=== PATIENT | male | born 1990 | race Caucasian/White ===

== ENCOUNTER 2020-06-14 12:09 | Emergency (ER) | payer OTHER, SELFPAY ==
[2020-06-14 12:13] VITALS: BP 188/85; PULSE 82; RESP 16; TEMP 36.5; O2SAT 98; BMI 31.7
--- NOTE | 2020-06-14 12:59 | ED.GENADULT ---
HPI - General Adult General Chief complaint: General Medical <RACHAEL Cuba Last Filed: 06/14/20 17:38> Stated complaint: Rash <RACHAEL Cuba Last Filed: 06/14/20 17:38> Time Seen by Provider: 06/14/20 13:07 <RACHAEL Cuba Last Filed: 06/14/20 17:38> Source: patient <RACHAEL Cuba Last Filed: 06/14/20 17:38> Mode of arrival: ambulatory <RACHAEL Cuba Last Filed: 06/14/20 17:38> Limitations: no limitations <RACHAEL Cuba Last Filed: 06/14/20 17:38> History of Present Illness HPI narrative: Patient presents to the ED for multiple complaints. Patient 1st complaint is itchy rash over the past 2 weeks. Secondary complaint is polydipsia polyuria for 1 month. Denies any abdominal pain, nausea, vomiting, dysuria, hematuria, flank pain, fever, or chills. Was at urgent care this morning and checked his glucose and it was 300. patient admits to family history of diabetes. Patient states his sister got diabetes in his 20s. Patient's 3rd complaint is slight inflammation irritation and swelling at foreskin at times make it slightly difficult to retract. <RACHAEL Cuba Last Filed: 06/14/20 17:38> Related Data Home medications: Previous Rx's Medication Instructions Recorded clotrimazole 1 applic TOPICAL BID 14 Days #28 g 06/14/20 diphenhydramine HCl [Benadryl] 25 mg PO TID PRN #30 cap 06/14/20 famotidine [Pepcid] 20 mg PO BID #20 tab 06/14/20 metformin 500 mg PO BID #30 tab 06/14/20 <RACHAEL Cuba Last Filed: 06/14/20 17:38> Allergies/adverse reactions: Allergies Allergy/AdvReac Type Severity Reaction Status Date / Time No Known Allergies Allergy Verified 06/14/20 12:15 <RACHAEL Cuba Last Filed: 06/14/20 17:38> Review of Systems Review of Systems: Yes all other systems are reviewed and are negative <RACHAEL Cuba Last Filed: 06/14/20 17:38> Constitutional: Constitutional: Reports as per HPI and Reports no additional constitutional complaints <RACHAEL Cuba Last Filed: 06/14/20 17:38> Eyes: Eyes: Reports as per HPI and Reports no additional eye complaints <RACHAEL Cuba Last Filed: 06/14/20 17:38> ENT: Reports system reviewed and no additional complaints, except as documented and Reports as per HPI <RACHAEL Cuba Last Filed: 06/14/20 17:38> Cardiovascular: Cardiovascular: Reports as per HPI, Reports no additional cardiovascular complaints, Denies chest pain, Denies chest pain at rest, Denies chest pain with activity, Denies Epigastric Pain, Denies dyspnea, Denies dyspnea on exertion, Denies orthopnea and Denies paroxysmal nocturnal dyspnea <RACHAEL Cuba Last Filed: 06/14/20 17:38> Respiratory: Respiratory: Reports as per HPI, Reports no additional respiratory complaints, Denies dyspnea and Denies dyspnea on exertion <RACHAEL Cuba Last Filed: 06/14/20 17:38> Gastrointestinal: Gastrointestinal: Reports as per HPI and Reports no additional gastrointestinal complaints <RACHAEL Cuba Last Filed: 06/14/20 17:38> Genitourinary: Comments: Balanitis <RACHAEL Cuba Last Filed: 06/14/20 17:38> Musculoskeletal: Musculoskeletal: Reports no additional musculoskeletal complaints and Reports as per HPI <RACHAEL Cuba Last Filed: 06/14/20 17:38> Comments: generalized seizure [place] rash on abdomen and chest. <RACHAEL Cuba Last Filed: 06/14/20 17:38> Neurologic: Reports system reviewed and no additional complaints, except as documented and Reports as per HPI <RACAHEL Cuba Last Filed: 06/14/20 17:38> Psychiatric: Psychiatric: Reports no additional psychiatric complaints and Reports as per HPI <RACHAEL Cuba Last Filed: 06/14/20 17:38> Endocrine: Comments: polydipsia and polyuria <RACHAEL Cuba Last Filed: 06/14/20 17:38> PMFSH Past Medical History Medical History: Medical History (Updated 06/15/20 @ 00:00 by Background Daluigi) No known health problems <RACHAEL Cuba - Last Filed: 06/14/20 17:38> Social History Social History: Social History Advance Directives: No Advance Directives Information Provided: No <RACHAEL Cuba - Last Filed: 06/14/20 17:38> Physical Exam Vital Signs: Vital Signs: Vital Signs Temp Pulse Resp BP Pulse Ox 06/14/20 16:00 97.9 F 63 16 139/87 98 06/14/20 13:01 76 16 155/90 H 97 06/14/20 12:13 97.7 F 82 16 188/85 H 98 Body Mass Index 31.7 <RACHAEL Cuba - Last Filed: 06/14/20 17:38> Vital Signs: Vital Signs Temp Pulse Resp BP Pulse Ox 06/14/20 16:00 97.9 F 63 16 139/87 98 06/14/20 13:01 76 16 155/90 H 97 06/14/20 12:13 97.7 F 82 16 188/85 H 98 Body Mass Index 31.7 <Negro Quintanilla MD - Last Filed: 06/25/20 01:40> Const: General: cooperative, healthy appearing, comfortable, no acute distress, well developed and awake <RACHAEL Cuba - Last Filed: 06/14/20 17:38> HENMT: Other: Negative for any swelling of lips or tongue. Uvula is midline. Patient is speaking in full sentences and not using accessory muscles. <RACHAEL Cuba - Last Filed: 06/14/20 17:38> Head: Yes normal to inspection and Yes No palpable skull fracture present <RACHAEL Cuba - Last Filed: 06/14/20 17:38> Eyes: General: appearance normal, both eyes and all related structures <RACHAEL Cuba - Last Filed: 06/14/20 17:38> Visual Dangelo: normal visual dangelo by confrontation <RACHAEL Cuba - Last Filed: 06/14/20 17:38> Neck: Neck: Yes normal visual inspection, Yes full ROM, Yes no lymphadenopathy and Yes no meningeal signs <RACHAEL Cuba - Last Filed: 06/14/20 17:38> Chest: Other: Patient positive uticaria rash on chest, abdomen and upper extremities. Patient describes rash is itchy. <RACHAEL Cuba Last Filed: 06/14/20 17:38> Chest palpation & inspection: normal inspection of the chest, normal palpation of entire chest wall and no localized rib tenderness <RACHAEL Cuba Last Filed: 06/14/20 17:38> Resp: Effort & Inspection: normal respiratory effort, able to speak in complete sentences, no audible wheezes, no cough, no grunting, not labored, no nasal flaring, no paradoxical thoraco-abdom movements, no retractions and no segmental paradox chest wall movement <RACHAEL Cuba Last Filed: 06/14/20 17:38> Auscultation: clear to auscultation bilaterally, no crackles, no rales, no rhonchi and no wheezes <RACHAEL Cuba Last Filed: 06/14/20 17:38> Percussion: percussion normal <RACHAEL Cuba Last Filed: 06/14/20 17:38> Cardio: Jugular venous distension: no JVD <RACHAEL Cuba Last Filed: 06/14/20 17:38> Heart sounds: S1 normal heart sound present and S2 normal heart sound present <RACHAEL Cuba Last Filed: 06/14/20 17:38> GI: Other: Positive uticaria rash abdomen <RACHAEL Cuba Last Filed: 06/14/20 17:38> Inspection: Yes normal to inspection and No abdominal wall ecchymosis <RACHAEL Cuba Last Filed: 06/14/20 17:38> Palpation (GI): Soft to palpation, not firm, nontender, no guarding and not rigid <RACHAEL Cuba Last Filed: 06/14/20 17:38> : Other: negative for any lesions on penis. Foreskin able to be pulled back and pulled forward. Irritation, erythema, inflammation around foreskin. Testicles are nontender, non swollen, and is normal. <RACHAEL Cuba Last Filed: 06/14/20 17:38> General: No CVA tenderness and Yes no CVA tenderness <RACHAEL Cuba Last Filed: 06/14/20 17:38> Back/Spine/Pelvis: Back: no CVA tenderness, No CVA tenderness and No back tenderness <RACHAEL Cuba Last Filed: 06/14/20 17:38> Skin: Other: positive for Uticarial Rash <RACHAEL Cuba Last Filed: 06/14/20 17:38> Neuro: General: gait normal, no meningeal signs and CN's II-XI intact bilaterally <RACHAEL Cuba - Last Filed: 06/14/20 17:38> Cranial nerves: Yes CN's II-XII intact bilaterally <RACHAEL Cuba Last Filed: 06/14/20 17:38> Extrem: General: Yes normal to inspection and Yes full ROM <RACHAEL Cuba Last Filed: 06/14/20 17:38> Psych: Appearance: grossly normal and well kempt <RACHAEL Cuba Last Filed: 06/14/20 17:38> Course Course Course Narrative: patient having uticarai 2 weeks. Patient given oral medications such as Benadryl,pepcid and prednisone. Patient will have basic labs to rule out DKA. Patient was recent fingerstick in the ED 275. patient is not in any distress <RACHAEL Cuba Last Filed: 06/14/20 17:38> I have reviewed the chart <Negro Quintanilla MD - Last Filed: 06/25/20 01:40> Reevaluation(s) Reevaluation #1: patient denies any distress. Awaiting results of chemistry. Urinalysis does show glucose in the urine. <RACHAEL Cuba - Last Filed: 06/14/20 17:38> Time: 03:09 <RACHAEL Cuba Last Filed: 06/14/20 17:38> Reevaluation #2: Patient labs came back negative for DKA. Patient anion gap is normal. Acetone is negative. Patient is not in any distress. Patient will be discharged with metformin for new onset diabetes. Patient has insurance and will call to make an appointment with his PCP. Patient also will be discharged with Benadryl, prednisone, and Pepcid for his uticarial rash. Patient also be discharged with cream for balanitis. <RACHAEL Cuba - Last Filed: 06/14/20 17:38> Time: 16:24 <RACHAEL Cuba - Last Filed: 06/14/20 17:38> Medical Decision Making MDM Narrative Medical decision making narrative: new onset diabetes. Uticaria. Balanitis <RACHAEL Cuba - Last Filed: 06/14/20 17:38> Lab Data Result diagrams: : 06/14/20 14:19 06/14/20 15:09 <RACHAEL Cuba - Last Filed: 06/14/20 17:38> Labs: Lab Results 06/14/20 06/14/20 06/14/20 Range/Units 12:58 14:19 14:19 WBC 8.3 (4.8-10.8) X10*3/uL RBC 5.26 (4.60-5.80) X10*6/uL Hgb 16.1 (14.0-18.0) g/dl Hct 47.2 (42-52) % MCV 89.7 (80-98) fL MCH 30.6 (27.0-33.0) pg MCHC 34.1 (31.0-36.0) g/dl RDW 11.9 (11.0-16.0) % Plt Count 262 (160-400) X10*3/uL MPV 10.6 (9.4-12.4) fL Immature Gran % (Auto) 0.2 (0.0-0.4) % Neut % (Auto) 61.3 (45-73) % Lymph % (Auto) 27.9 (20-40) % Warren % (Auto) 7.9 (2-11) % Eos % (Auto) 2.5 (0-4) % Baso % (Auto) 0.2 (0-2) % Lymph # (Auto) 2.3 (1.2-4.9) X10*3/uL Warren # (Auto) 0.7 (0.1-1.2) X10*3/uL Eos # (Auto) 0.2 (0.0-0.4) X10*3/uL Baso # (Auto) 0.0 (0.0-0.2) X10*3/uL Abs Immat Gran (auto) 0.02 (0.00-0.03) X10*3/uL Absolute Neuts (auto) 5.1 (2.0-8.3) X10*3/uL Absolute Nucleated RBC 0.000 (0.0-0.012) X10*3/uL Nucleated RBC % (auto) 0.0 (0.0-0.2) /100WBC PT 12.5 (10.8-13.0) SEC INR 1.1 (0.9-1.1) APTT 36.5 (24.1-38.0) SEC Sodium Potassium Chloride Carbon Dioxide Anion Gap BUN Creatinine Estim Creat Clear Calc Estimated GFR POC Glucose 272 H (60-115) mg/dL Random Glucose Calcium Total Bilirubin AST ALT Alkaline Phosphatase Total Protein Albumin Urine Color Urine Appearance Urine pH (5.0-8.0) Ur Specific [place] (1.005-1.025) Urine Protein (NEG-TRACE) MG/DL Urine Glucose (UA) (NEG) MG/DL Urine Ketones (NEG) MG/DL Urine Blood (NEG) Urine Nitrite (NEG) Ur Leukocyte Esterase (NEG) Urine RBC (0) /HPF Urine WBC (0-4) /HPF Ur Squamous Epith Cells /LPF Urine Bacteria /LPF Acetone, Qual 06/14/20 06/14/20 06/14/20 Range/Units 14:19 14:19 15:09 WBC (4.8-10.8) X10*3/uL RBC (4.60-5.80) X10*6/uL Hgb (14.0-18.0) g/dl Hct (42-52) % MCV (80-98) fL MCH (27.0-33.0) pg MCHC (31.0-36.0) g/dl RDW (11.0-16.0) % Plt Count (160-400) X10*3/uL MPV (9.4-12.4) fL Immature Gran % (Auto) (0.0-0.4) % Neut % (Auto) (45-73) % Lymph % (Auto) (20-40) % Warren % (Auto) (2-11) % Eos % (Auto) (0-4) % Baso % (Auto) (0-2) % Lymph # (Auto) (1.2-4.9) X10*3/uL [place] # (Auto) (0.1-1.2) X10*3/uL Eos # (Auto) (0.0-0.4) X10*3/uL Baso # (Auto) (0.0-0.2) X10*3/uL Abs Immat Gran (auto) (0.00-0.03) X10*3/uL Absolute Neuts (auto) (2.0-8.3) X10*3/uL Absolute Nucleated RBC (0.0-0.012) X10*3/uL Nucleated RBC % (auto) (0.0-0.2) /100WBC PT (10.8-13.0) SEC INR (0.9-1.1) APTT (24.1-38.0) SEC Sodium Cancelled Potassium Cancelled Chloride Cancelled Carbon Dioxide Cancelled Anion Gap Cancelled BUN Cancelled Creatinine Cancelled Estim Creat Clear Calc Cancelled Estimated GFR Cancelled POC Glucose (60-115) mg/dL Random Glucose Cancelled Calcium Cancelled Total Bilirubin Cancelled AST Cancelled ALT Cancelled Alkaline Phosphatase Cancelled Total Protein Cancelled Albumin Cancelled Urine Color YELLOW Urine Appearance CLEAR Urine pH 6.5 (5.0-8.0) Ur Specific [place] 1.020 (1.005-1.025) Urine Protein NEG (NEG-TRACE) MG/DL Urine Glucose (UA) >=1000 H (NEG) MG/DL Urine Ketones 15 (NEG) MG/DL Urine Blood TRACE (NEG) Urine Nitrite NEG (NEG) Ur Leukocyte Esterase NEG (NEG) Urine RBC 1-4 (0) /HPF Urine WBC 0 (0-4) /HPF Ur Squamous Epith Cells NONE /LPF Urine Bacteria NONE /LPF Acetone, Qual Cancelled Negative 06/14/20 Range/Units 15:09 WBC (4.8-10.8) X10*3/uL RBC (4.60-5.80) X10*6/uL Hgb (14.0-18.0) g/dl Hct (42-52) % MCV (80-98) fL MCH (27.0-33.0) pg MCHC (31.0-36.0) g/dl RDW (11.0-16.0) % Plt Count (160-400) X10*3/uL MPV (9.4-12.4) fL Immature Gran % (Auto) (0.0-0.4) % Neut % (Auto) (45-73) % Lymph % (Auto) (20-40) % [place] % (Auto) (2-11) % Eos % (Auto) (0-4) % Baso % (Auto) (0-2) % Lymph # (Auto) (1.2-4.9) X10*3/uL [place] # (Auto) (0.1-1.2) X10*3/uL Eos # (Auto) (0.0-0.4) X10*3/uL Baso # (Auto) (0.0-0.2) X10*3/uL Abs Immat Gran (auto) (0.00-0.03) X10*3/uL Absolute Neuts (auto) (2.0-8.3) X10*3/uL Absolute Nucleated RBC (0.0-0.012) X10*3/uL Nucleated RBC % (auto) (0.0-0.2) /100WBC PT (10.8-13.0) SEC INR (0.9-1.1) APTT (24.1-38.0) SEC Sodium 138 Potassium 4.0 Chloride 106 Carbon Dioxide 24 Anion Gap 12 BUN 12 Creatinine 0.75 Estim Creat Clear Calc 170.3 Estimated GFR > 60 POC Glucose (60-115) mg/dL Random Glucose 278 H Calcium 8.2 L Total Bilirubin 0.7 AST 42 H ALT 86 H Alkaline Phosphatase 98 Total Protein 6.6 Albumin 4.0 Urine Color Urine Appearance Urine pH (5.0-8.0) Ur Specific [place] (1.005-1.025) Urine Protein (NEG-TRACE) MG/DL Urine Glucose (UA) (NEG) MG/DL Urine Ketones (NEG) MG/DL Urine Blood (NEG) Urine Nitrite (NEG) Ur Leukocyte Esterase (NEG) Urine RBC (0) /HPF Urine WBC (0-4) /HPF Ur Squamous Epith Cells /LPF Urine Bacteria /LPF Acetone, Qual <RACHAEL Cuba - Last Filed: 06/14/20 17:38> Lab Results 06/14/20 06/14/20 06/14/20 Range/Units 12:58 14:19 14:19 WBC 8.3 (4.8-10.8) X10*3/uL RBC 5.26 (4.60-5.80) X10*6/uL Hgb 16.1 (14.0-18.0) g/dl Hct 47.2 (42-52) % MCV 89.7 (80-98) fL MCH 30.6 (27.0-33.0) pg MCHC 34.1 (31.0-36.0) g/dl RDW 11.9 (11.0-16.0) % Plt Count 262 (160-400) X10*3/uL MPV 10.6 (9.4-12.4) fL Immature Gran % (Auto) 0.2 (0.0-0.4) % Neut % (Auto) 61.3 (45-73) % Lymph % (Auto) 27.9 (20-40) % [place] % (Auto) 7.9 (2-11) % Eos % (Auto) 2.5 (0-4) % Baso % (Auto) 0.2 (0-2) % Lymph # (Auto) 2.3 (1.2-4.9) X10*3/uL [place] # (Auto) 0.7 (0.1-1.2) X10*3/uL Eos # (Auto) 0.2 (0.0-0.4) X10*3/uL Baso # (Auto) 0.0 (0.0-0.2) X10*3/uL Abs Immat Gran (auto) 0.02 (0.00-0.03) X10*3/uL Absolute Neuts (auto) 5.1 (2.0-8.3) X10*3/uL Absolute Nucleated RBC 0.000 (0.0-0.012) X10*3/uL Nucleated RBC % (auto) 0.0 (0.0-0.2) /100WBC PT 12.5 (10.8-13.0) SEC INR 1.1 (0.9-1.1) APTT 36.5 (24.1-38.0) SEC Sodium Potassium Chloride Carbon Dioxide Anion Gap BUN Creatinine Estim Creat Clear Calc Estimated GFR POC Glucose 272 H (60-115) mg/dL Random Glucose Calcium Total Bilirubin AST ALT Alkaline Phosphatase Total Protein Albumin Urine Color Urine Appearance Urine pH (5.0-8.0) Ur Specific [place] (1.005-1.025) Urine Protein (NEG-TRACE) MG/DL Urine Glucose (UA) (NEG) MG/DL Urine Ketones (NEG) MG/DL Urine Blood (NEG) Urine Nitrite (NEG) Ur Leukocyte Esterase (NEG) Urine RBC (0) /HPF Urine WBC (0-4) /HPF Ur Squamous Epith Cells /LPF Urine Bacteria /LPF Acetone, Qual 06/14/20 06/14/20 06/14/20 Range/Units 14:19 14:19 15:09 WBC (4.8-10.8) X10*3/uL RBC (4.60-5.80) X10*6/uL Hgb (14.0-18.0) g/dl Hct (42-52) % MCV (80-98) fL MCH (27.0-33.0) pg MCHC (31.0-36.0) g/dl RDW (11.0-16.0) % Plt Count (160-400) X10*3/uL MPV (9.4-12.4) fL Immature Gran % (Auto) (0.0-0.4) % Neut % (Auto) (45-73) % Lymph % (Auto) (20-40) % [place] % (Auto) (2-11) % Eos % (Auto) (0-4) % Baso % (Auto) (0-2) % Lymph # (Auto) (1.2-4.9) X10*3/uL [place] # (Auto) (0.1-1.2) X10*3/uL Eos # (Auto) (0.0-0.4) X10*3/uL Baso # (Auto) (0.0-0.2) X10*3/uL Abs Immat Gran (auto) (0.00-0.03) X10*3/uL Absolute Neuts (auto) (2.0-8.3) X10*3/uL Absolute Nucleated RBC (0.0-0.012) X10*3/uL Nucleated RBC % (auto) (0.0-0.2) /100WBC PT (10.8-13.0) SEC INR (0.9-1.1) APTT (24.1-38.0) SEC Sodium Cancelled Potassium Cancelled Chloride Cancelled Carbon Dioxide Cancelled Anion Gap Cancelled BUN Cancelled Creatinine Cancelled Estim Creat Clear Calc Cancelled Estimated GFR Cancelled POC Glucose (60-115) mg/dL Random Glucose Cancelled Calcium Cancelled Total Bilirubin Cancelled AST Cancelled ALT Cancelled Alkaline Phosphatase Cancelled Total Protein Cancelled Albumin Cancelled Urine Color YELLOW Urine Appearance CLEAR Urine pH 6.5 (5.0-8.0) Ur Specific [place] 1.020 (1.005-1.025) Urine Protein NEG (NEG-TRACE) MG/DL Urine Glucose (UA) >=1000 H (NEG) MG/DL Urine Ketones 15 (NEG) MG/DL Urine Blood TRACE (NEG) Urine Nitrite NEG (NEG) Ur Leukocyte Esterase NEG (NEG) Urine RBC 1-4 (0) /HPF Urine WBC 0 (0-4) /HPF Ur Squamous Epith Cells NONE /LPF Urine Bacteria NONE /LPF Acetone, Qual Cancelled Negative 06/14/20 Range/Units 15:09 WBC (4.8-10.8) X10*3/uL RBC (4.60-5.80) X10*6/uL Hgb (14.0-18.0) g/dl Hct (42-52) % MCV (80-98) fL MCH (27.0-33.0) pg MCHC (31.0-36.0) g/dl RDW (11.0-16.0) % Plt Count (160-400) X10*3/uL MPV (9.4-12.4) fL Immature Gran % (Auto) (0.0-0.4) % Neut % (Auto) (45-73) % Lymph % (Auto) (20-40) % [place] % (Auto) (2-11) % Eos % (Auto) (0-4) % Baso % (Auto) (0-2) % Lymph # (Auto) (1.2-4.9) X10*3/uL [place] # (Auto) (0.1-1.2) X10*3/uL Eos # (Auto) (0.0-0.4) X10*3/uL Baso # (Auto) (0.0-0.2) X10*3/uL Abs Immat Gran (auto) (0.00-0.03) X10*3/uL Absolute Neuts (auto) (2.0-8.3) X10*3/uL Absolute Nucleated RBC (0.0-0.012) X10*3/uL Nucleated RBC % (auto) (0.0-0.2) /100WBC PT (10.8-13.0) SEC INR (0.9-1.1) APTT (24.1-38.0) SEC Sodium 138 Potassium 4.0 Chloride 106 Carbon Dioxide 24 Anion Gap 12 BUN 12 Creatinine 0.75 Estim Creat Clear Calc 170.3 Estimated GFR > 60 POC Glucose (60-115) mg/dL Random Glucose 278 H Calcium 8.2 L Total Bilirubin 0.7 AST 42 H ALT 86 H Alkaline Phosphatase 98 Total Protein 6.6 Albumin 4.0 Urine Color Urine Appearance Urine pH (5.0-8.0) Ur Specific [place] (1.005-1.025) Urine Protein (NEG-TRACE) MG/DL Urine Glucose (UA) (NEG) MG/DL Urine Ketones (NEG) MG/DL Urine Blood (NEG) Urine Nitrite (NEG) Ur Leukocyte Esterase (NEG) Urine RBC (0) /HPF Urine WBC (0-4) /HPF Ur Squamous Epith Cells /LPF Urine Bacteria /LPF Acetone, Qual <Negro Quintanilla MD - Last Filed: 06/25/20 01:40> Discharge Plan Discharge Clinical Impression: Diabetes, Acute urticaria, Balanitis <RACHAEL Cuba - Last Filed: 06/14/20 17:38> Patient Disposition: Home, Self-Care <RACHAEL Cuba - Last Filed: 06/14/20 17:38> Instructions: Urticaria (ED), Balanitis (ED), Diabetes and Nutrition (ED) <RACHAEL Cuba - Last Filed: 06/14/20 17:38> Additional Instructions: Return to the ED for weakness, nausea, vomiting, diarrhea, chest pain, shortness of breath, increased thirst, increased urination, flank pain, fever, chills, abdominal pain, swelling of lips, swelling of tongue, worsening rash, or any other concerning symptoms. Please call your PCP for follow up. <RACHAEL Cuba - Last Filed: 06/14/20 17:38> Prescriptions: New metformin 500 mg tablet 500 mg PO BID Qty: 30 RF: 0 diphenhydramine HCl [Benadryl] 25 mg capsule 25 mg PO TID PRN (Reason: itching) Qty: 30 RF: 0 famotidine [Pepcid] 20 mg tablet 20 mg PO BID Qty: 20 RF: 0 clotrimazole 1 % cream 1 applic topical BID 14 Days Qty: 28 RF: 0 <RACHAEL Cuba - Last Filed: 06/14/20 17:38> Stand Alone Forms: Work/School Release <RACHAEL Cuba - Last Filed: 06/14/20 17:38> Interventions: ED Discharge Assessment Last Done: 06/14/20 16:57 <RACHAEL Cuba - Last Filed: 06/14/20 17:38> Discharge Date/Time: 06/14/20 17:00 <RACHAEL Cuba - Last Filed: 06/14/20 17:38> Print Language: Ghanaian <RACHAEL Cuba - Last Filed: 06/14/20 17:38>
[2020-06-14 13:01] VITALS: BP 155/90; PULSE 76; RESP 16; O2SAT 97
[2020-06-14] MEDS: 0.9 % Sodium Chloride 1,000 ML 999 ML IVCONT (13:59)
[2020-06-14] MEDS: predniSONE 20 MG TABLET 60 MG PO (13:59)
[2020-06-14] MEDS: diphenhydrAMINE HCL 25 MG TABLET 50 MG PO (13:59)
[2020-06-14] MEDS: Famotidine 20 MG TABLET PO (13:59)
[2020-06-14 14:25] LABS: MANUAL DIFF FLAG NO
[2020-06-14 14:28] LABS: Glucose Urine UA >=1000 MG/DL (NEG); Leukocyte Esterase Urine NEG (NEG); Nitrite Urine NEG (NEG); PH 6.5 (5.0-8.0); Urine Blood TRACE (NEG); Urine Ketones 15 MG/DL (NEG); Urine Protein NEG (NEG-TRACE)
[2020-06-14 14:30] LABS: Basophils Percent Auto 0.2 % (0-2); Eosinophils Absolute Auto 0.2 X10*3/uL (0.0-0.4); Eosinophils Percent Auto 2.5 % (0-4); Hematocrit 47.2 % (42-52); Hemoglobin 16.1 g/dl (14.0-18.0); Imm Gran Abs Auto 0.02 X10*3/uL (0.00-0.03); Imm Gran Pct Auto 0.2 % (0.0-0.4); Lymphocytes Absolute Auto 2.3 X10*3/uL (1.2-4.9); Lymphocytes Percent Auto 27.9 % (20-40); Mean Corpuscular HGB Conc 34.1 g/dl (31.0-36.0); Mean Corpuscular Hemoglobin 30.6 pg (27.0-33.0); Mean Corpuscular Volume 89.7 fL (80-98); Mean Platelet Volume 10.6 fL (9.4-12.4); Monocytes Absolute Auto 0.7 X10*3/uL (0.1-1.2); Monocytes Percent Auto 7.9 % (2-11); Neutrophils Absolute Auto 5.1 X10*3/uL (2.0-8.3); Neutrophils Percent Auto 61.3 % (45-73); Platelet Count 262 X10*3/uL (160-400); Red Blood Count 5.26 X10*6/uL (4.60-5.80); Red Cell Distribution Width 11.9 % (11.0-16.0); White Blood Count 8.3 X10*3/uL (4.8-10.8)
[2020-06-14 14:31] LABS: Glucose, Whole Blood 272 mg/dL (60-115)
[2020-06-14 14:36] LABS: Appearance Urine CLEAR; Color Urine YELLOW; INTERNATIONAL NORM RATIO 1.1 (0.9-1.1); Prothrombin Time 12.5 SEC (10.8-13.0)
[2020-06-14 14:38] LABS: Partial Thromboplastin Time 36.5 SEC (24.1-38.0)
[2020-06-14 14:40] LABS: WBC Urine 0 /HPF (0-4)
--- NOTE | 2020-06-14 15:45 | PC.NURSE ---
PT ARRIVES AFTER REFERRAL FROM [facility] FOR ELEVATED GLUCOSE. ORIGINALLY WENT THERE FOR RASH ON UPPER EXTREMITIES AND PENILE PAIN, UNABLE TO RETRACT FORESKIN. RASH PAPULAR, PRURITIC, UNABLE TO NAME NEW POSSIBLE ALLERGENS. NO OPEN AREAS. POC SLIGHTLY ELEVATED. 20G IN L AC. LAB REDRAWN. MEDICATED PER EMR. VS WNL. A&OX3 SPEAKING IN CLEAR FULL SENTENCES. RESP EVEN AND NONLABOURED.
[2020-06-14 15:52] LABS: Acetone, serum QL Negative (Negative)
[2020-06-14 16:00] VITALS: BP 139/87; PULSE 63; RESP 16; TEMP 36.6; O2SAT 98
[2020-06-14 16:01] LABS: Alanine Aminotransferase 86 U/L (0-40); Alkaline Phosphatase 98 U/L (39-117); Anion Gap 12 (12-20); Aspartate Amino Transferase 42 U/L (5-37); Bilirubin Total 0.7 mg/dL (0.0-1.0); Blood Urea Nitrogen 12 mg/dL (9-16); Calcium 8.2 mg/dL (8.4-10.2); Carbon Dioxide 24 mmol/L (22-29); Chloride 106 mmol/L (96-108); Creatinine Clr Calc Pharmacy 170.3; Estimated Glomerular Filt Rate > 60; Glucose Random 278 mg/dL (60-115); Sodium 138 mmol/L (135-145); Total Protein 6.6 g/dL (6.5-8.0)
--- NOTE | 2020-06-14 16:31 | MHC.CM.ED ---
Received case management consult from RACHAEL Dorsey. Patient came to ER due to a rash. Patient found to have DM. 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 He has temporary insurance and is not sure if his insurance will cover a primary care provider or medication. T/W attempted to look at patient's insurance online. Patient has to login to member services in order to find a provider and find out about pharmacy coverage. Information provided to patient about [facility] primary care providers, pharmacy and dentist. Information also provided about [email or web address] $4 prescriptions. Patient verbalized understanding.
== END 2020-06-14 17:00 | disposition home or self-care (01) ==
PROVIDERS: Physician Assistant; Emergency Provider Emergency Medicine
DX: L50.9 Urticaria, unspecified (principal); N48.1 Balanitis; R21 Rash and other nonspecific skin eruption; E11.9 Type 2 diabetes mellitus without complications; Z79.899 Other long term (current) drug therapy
CPT/HCPCS: 36415; 80053; 81001; 82009; 82947; 85025; 85610; 85730; 96360; 99284; Q0163